=== PATIENT | male | born 1960 | race Caucasian/White ===

== ENCOUNTER 2020-02-13 15:44 | Outpatient (CLI) | payer MEDICARE, MEDICAID, SELFPAY ==
--- NOTE | 2020-02-13 16:30 | USCV_ITS ---
Brian Leblanc Age: 59 Gender: M : 1960 Exam Date: 02/13/2020 15:59 Ordering Phys: Christine Aldrich MD ([email or web address]) Technologist: Amelia Wilson Exam Location: [facility] [place] Indication: TIA BP: 144 / 75 HR: 99 Rhythm: Sinus Technical Quality: Adequate MEASUREMENTS (Male / Female) Normal Values 2D ECHO LV Diastolic Diameter PLAX 3.3 cm 4.2 - 5.9 / 3.9 - 5.3 cm LV Systolic Diameter PLAX 2.0 cm LV Chamber Size 2.5 cm IVS Diastolic Thickness 1.1 cm 0.6 - 1.0 / 0.6 - 0.9 cm IVS Systolic Thickness 0.9 cm LVPW Diastolic Thickness 1.6 cm 0.6 - 1.0 / 0.6 - 0.9 cm LVPW Systolic Thickness 1.8 cm RV Chamber Size 2.3 cm LVOT Diameter 2.0 cm LV Ejection Fraction 2D Teich 70.8 % LV Ejection Fraction MOD 2C 61.2 % LV Ejection Fraction 2C AL 62.1 % LA Diameter 2.9 cm LA Width 2.9 cm LA Height 2.7 cm RA Width 2.1 cm RA Height 2.8 cm Aorta at Sinotubular Diameter 3.5 cm M-MODE LV Diastolic Diameter MM 5.6 cm 4.2 - 5.9 / 3.9 - 5.3 cm LV Systolic Diameter MM 3.7 cm LV Ejection Fraction MM Teich 63.2 % IVS Diastolic Thickness MM 0.7 cm 0.6 - 1.0 / 0.6 - 0.9 cm IVS Systolic Thickness MM 0.8 cm LVPW Diastolic Thickness MM 0.7 cm 0.6 - 1.0 / 0.6 - 0.9 cm LVPW Systolic Thickness MM 0.9 cm Aortic Annulus Diameter 3.5 cm LA Ao Ratio MM 0.8 MV E Point Septal Separation 0.8 cm DOPPLER AV Peak Velocity 146.0 cm/s LVOT Peak Velocity 112.0 cm/s AV Area Cont Eq vti 3.0 cm squared AV Area Cont Eq pk 2.5 cm squared MV Area PHT 7.1 cm squared Mitral E to A Ratio 0.6 MV E' Velocity 11.0 cm/s Mitral E to MV E' Ratio 7.5 Mitral E to LV E' Lateral Ratio 7.3 Mitral E to LV E' Septal Ratio 7.8 TR Peak Velocity 271.0 cm/s TR Peak Gradient 29.4 mmHg TV Peak E Velocity 47.0 cm/s Right Atrial Pressure 3.0 mmHg Pulmonary Artery Systolic Pressu 32.4 mmHg PV Peak Velocity 62.0 cm/s RV Acceleration Time 0.2 s RV Ejection Time 0.4 s RV AcT/ET 0.4 FINDINGS Left Ventricle Normal left ventricular size, systolic function and wall thickness, with no regional wall motion abnormalities. Left ventricular ejection fraction is estimated at 60 %. Grade 1 diastolic dysfunction. Right Ventricle Normal right ventricular size and systolic function. Right ventricular systolic pressure 32.4 mmHg. Right Atrium Normal right atrial size. Right atrial pressure estimated at 3 mmHg. Left Atrium Normal left atrial size. Mitral Valve Thickened mitral valve with bowing of mild bilateral mitral valve leaflets. No significant mitral valve prolapse. No mitral valve stenosis. Mild mitral valve regurgitation. Aortic Valve Structurally normal trileaflet aortic valve. No aortic valve stenosis. Mild aortic valve regurgitation. Tricuspid Valve Structurally normal tricuspid valve. Pulmonic Valve Pulmonic valve not well visualized. Trace pulmonary valve regurgitation. Pericardium No pericardial effusion. Aorta Normal size aortic root and proximal ascending aorta. CONCLUSIONS 1. Normal left ventricular size, systolic function and wall thickness, with no regional wall motion abnormalities. Left ventricular ejection fraction is estimated at 60 %. Grade 1 diastolic dysfunction. 2. Normal right ventricular size and systolic function. 3. Right atrial pressure estimated at 3 mmHg. 4. Thickened mitral valve with bowing of mild bilateral mitral valve leaflets. Mild mitral valve regurgitation. 5. Pulmonary artery pressure estimated at 32 mmHg. 6. No prior similar studies to compare. Christine Aldrich MD (Electronically Signed) Final Date: 15 February 2020 15:14 S
== END 2020-02-13 15:45 | disposition home or self-care (01) ==
LOC: US 15:47
PROVIDERS: Family Provider Nurse Practitioner; PCP Nurse Practitioner; Visit Provider Internal Medicine Cardiovascular Disease
DX: G45.9 Transient cerebral ischemic attack, unspecified (principal); I34.0 Nonrheumatic mitral (valve) insufficiency
CPT/HCPCS: 93306

== ENCOUNTER → 2020-06-02 10:34 | Outpatient (BNVA) | payer MEDICARE, MEDICAID, SELFPAY | PROVIDERS: Family Provider Nurse Practitioner; PCP Nurse Practitioner; Visit Provider Nurse Practitioner | DX: E78.5 Hyperlipidemia, unspecified (principal); M54.32 Sciatica, left side; J43.9 Emphysema, unspecified; F41.9 Anxiety disorder, unspecified; K21.9 Gastro-esophageal reflux disease without esophagitis; G47.00 Insomnia, unspecified; E55.9 Vitamin D deficiency, unspecified | CPT/HCPCS: 80053; 80061 ==

== ENCOUNTER 2020-06-17 09:44 | Outpatient (CLI) | payer MEDICARE, MEDICAID, SELFPAY ==
--- NOTE | 2020-06-17 14:24 | PFTS_ITS ---
Date of Study:06/17/20 Date of Dictation: MECHANICS: Forced vital capacity (FVC) is normal. Forced expiratory volume in one second (FEV1) is reduced. FEV1/FVC is reduced. FLOW VOLUME LOOP: Reduced flow at all lung volumes with significant scooping. LUNG VOLUMES: Total lung capacity (TLC) is elevated. Residual volume (RV) is normal. DIFFUSING CAPACITY FOR CARBON MONOXIDE: Normal. INTERPRETATION: The pulmonary function tests are consistent with moderate obstruction. Lung volumes are consistent with hyperinflation. Gas exchange (DLCO) is normal. MTDD
== END 2020-06-17 09:45 | disposition home or self-care (01) ==
LOC: RT 09:45
PROVIDERS: Family Provider Nurse Practitioner; PCP Nurse Practitioner; Visit Provider Internal Medicine Pulmonary Disease
DX: J43.9 Emphysema, unspecified (principal)
CPT/HCPCS: 94010; 94726; 94729

== ENCOUNTER 2020-06-24 14:16 | Outpatient (CLI) | payer MEDICARE, MEDICAID, SELFPAY ==
--- NOTE | 2020-06-24 14:30 | CT_ITS ---
WS: [id number] CT CHEST TECHNIQUE: Noncontrast CT of the chest with coronal and sagittal reformatted images. CLINICAL INFORMATION: emphysema COMPARISON: CT chest January DLP: 689.[address] scans at [facility] use at least one of these dose optimization techniques: automat ed exposure control; mA and/or kV adjustment per patient size (includes targeted exams where dose is matched to clinical indication); or iterative reconstruction. FINDINGS: Mild chronic emphysematous changes. Stable noncalcified 4 mm nodule left lung apex. No mediastinal or hilar lymphadenopathy. Calcified subcarinal lymph nodes. Again seen are tree in bud opacities in the right upper lobe with bronchiectasis slightly progressed from previous. Additional tree-in-bud opacities in the right middle lobe. Left lung is well aerated. No focal pneumonia. Normal caliber thoracic aorta. Mild aortic calcification. Mild coronary calcifica tion. No axillary lymphadenopathy. Adrenal glands are normal. Small esophageal hiatal hernia. CT/CT chest con [id number] IMPRESSION: 1. Slightly progressed tree-in-bud opacities in the right upper lobe and right middle lobe similar to previous. 2. No focal pneumonia. 3. Stable 4 mm noncalcified nodule in the left lung apex. 4. No mediastinal or hilar lymphadenopathy. Calcified subcarinal lymph nodes.
== END 2020-06-24 14:17 | disposition home or self-care (01) ==
LOC: RADWPI 14:22
PROVIDERS: Family Provider Nurse Practitioner; PCP Nurse Practitioner; Visit Provider Internal Medicine Pulmonary Disease
DX: J43.9 Emphysema, unspecified (principal); R91.1 Solitary pulmonary nodule
CPT/HCPCS: 71250

== ENCOUNTER → 2020-11-27 10:13 | Outpatient (BNVA) | payer MEDICARE, MEDICAID, SELFPAY | PROVIDERS: Family Provider Nurse Practitioner; PCP Nurse Practitioner; Visit Provider Nurse Practitioner | DX: D64.9 Anemia, unspecified (principal); E78.5 Hyperlipidemia, unspecified; E55.9 Vitamin D deficiency, unspecified; F41.9 Anxiety disorder, unspecified; J43.9 Emphysema, unspecified; J30.9 Allergic rhinitis, unspecified; M54.32 Sciatica, left side; K21.9 Gastro-esophageal reflux disease without esophagitis; G47.00 Insomnia, unspecified | CPT/HCPCS: 80053; 80061; 82306; 84443; 85025 ==

== ENCOUNTER → 2021-03-12 09:17 | Outpatient (BNVA) | payer MEDICARE, MEDICAID, SELFPAY | PROVIDERS: Family Provider Nurse Practitioner; PCP Nurse Practitioner; Referring Provider Dermatology; Visit Provider Orthopaedic Surgery | DX: M54.5 Low back pain (principal); M54.9 Dorsalgia, unspecified | CPT/HCPCS: 72110 ==

== ENCOUNTER 2021-03-30 12:23 | Outpatient (CLI) | payer MEDICARE, MEDICAID, SELFPAY ==
--- NOTE | 2021-03-30 13:00 | MR_ITS ---
WS: [id number] MRI LUMBAR SPINE NONCONTRAST HISTORY: M48.061 - Spinal stenosis, lumbar region without neurogenic claudication COMPARISON: 05/16/2007 TECHNIQUE: Sagittal and axial multisequence imaging is submitted. Prior anterior cervical fusion at C4-5. Moderate increase in thoracic kyphosis. Mild LEFT curvature lumbar spine. No marrow edema or fracture. Mild disc desiccation at L3-4 and L4-5 . Conus terminates normally at L1. L1-L2: Normal. L2-L3: Mild asymmetric disc bulging. LEFT foraminal disc protrusion and annular fissure. Mild bilater al foraminal narrowing, slightly greater on the LEFT. L3-L4: Mild annular disc bulging with osteophytic ridging and facet joint arthritis. Mild ligamentum flavum hypertrophy. Mild to moderate narrowing of the lateral recesses and foramina. Greater on the L EFT. L4-L5: Mild diffuse annular disc bulging with ligamentum flavum hypertrophy. Small disc protrusion an d annular fissure in the LEFT foramen. Disc slightly contacts the undersurface of the L4 nerve root. There is also encroachment upon the L5 nerve roots bilaterally but greatest on the LEFT. Mild central stenosis. L5-S1: Very mild annular disc bulging. Mild bilateral foraminal narrowing. Visualized retroperitoneum is negative. MR/MR lumbar spine wo con* [id number] IMPRESSION: 1. Mild degenerative levoscoliosis similar to the prior study. 2. Mild progression of degenerative disc disease and foraminal narrowing since the prior study from 2006. 3. Small LEFT foraminal disc protrusion and annular fissures at L2-3 and L4-5 causing mild contact upon the adjacent L2 and L4 nerve roots, respectively. 4. Bilateral mild to moderate narrowing of the lateral recesses and foramina a t L3-4. 5. Mild central stenosis at L4-5 with mild encroachment upon the subarticular recesses bilaterally, LEFT greater than RIGHT.
== END 2021-03-30 12:24 | disposition home or self-care (01) ==
LOC: RADSHAW 12:26
PROVIDERS: PCP Nurse Practitioner; Visit Provider Orthopaedic Surgery
DX: M48.061 Spinal stenosis, lumbar region without neurogenic claudication (principal); M41.86 Other forms of scoliosis, lumbar region; M51.26 Other intervertebral disc displacement, lumbar region
CPT/HCPCS: 72148

== ENCOUNTER → 2021-05-15 09:40 | Outpatient (BNVA) | payer MEDICARE, MEDICAID, SELFPAY | PROVIDERS: PCP Nurse Practitioner; Visit Provider Orthopaedic Surgery | DX: Z20.822 Contact with and (suspected) exposure to COVID-19 (principal) | CPT/HCPCS: 87635 ==

== ENCOUNTER 2021-05-20 06:00 | Day surgery (SDC) | payer MEDICARE, MEDICAID, SELFPAY ==
--- NOTE | 2021-05-18 10:02 | ECG_ITS ---
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 Measurements Intervals Alexander Rate: 80 P: 70 AZ: 159 QRS: 53 QRSD: 85 T: 56 QT: 352 QTc: 408 Interpretive Statements SINUS RHYTHM Compared to ECG 03/31/2018 09:44:54 Sinus tachycardia no longer present Myocardial infarct finding no longer present Electronically Signed On 05-21-2021 7:24:04 CDT by Christine Aldrich M.D. [id number]
[2021-05-18 10:07] VITALS: BMI 23.6
[2021-05-18 10:33] LABS: Basophils # 0.1 10^3/uL (0.0-0.1); Basophils % 1.2 %; Eosinophils # 0.4 10^3/uL (0.0-0.8); Eosinophils % 6.9 %; Hematocrit 37.6 % (42.0-52.0); Hemoglobin 11.9 g/dL (11.7-16.6); Lymphocytes # 1.8 10^3/uL (0.8-4.8); Lymphocytes % 30.9 %; Mean Corpuscular HGB Conc 31.6 g/dL (30.0-36.0); Mean Corpuscular Hemoglobin 30.2 pg (28.0-34.0); Mean Corpuscular Volume 95.4 fL (80-94); Monocytes # 0.7 10^3/uL (0.2-0.9); Monocytes % 11.6 %; Neutrophils # 2.78 10^3/uL (1.8-7.7); Nucleated Red Blood Cells % 0 %; Platelet Count 206 10^3/cmm (130-400); Red Blood Count 3.94 10^6/uL (4.1-5.3); Red Cell Distribution Width 14.3 % (12.1-15.1); White Blood Count 5.7 10^3/uL (4.0-10.0)
--- NOTE | 2021-05-18 14:43 | P.ANESASSM_ITS ---
Pre-Anesthetic Assessment Pre-Anesthetic Assessment: Height/Weight: Height 1.75 m Weight 72.575 kg Proposed Procedure: Operation Date: 05/20/21 13:35 Proposed Procedures p Lumbar Spine Decompression 63692 M48.061(Not Applicable) - Perry March, DO Was Beta Bandar taken within 24 hours: N/A Was Clonidine taken within 24 hours: N/A Social: Social History: Tobacco and No alcohol Exam: Pre-Anes Outpt Exam: alert, oriented x 3 and regular rate & rhythm Airway: Submandibular: WNL Cervical ROM: WNL MP: 2 Dentition: False Pulmonary: Pulmonary: COPD Comments: Home O2 3L, recent pneumonia CV/HEM: CV/HEM: Anemia GI: GI: GERD Musc/skel: Musc/skel: Lower Back Pain Comments: Chronic pain/opioid Neuropsych: Neuropsych: Anxiety and Depression Anesthetic Plan: ASA status: 3 Anesthesia: General Risk of > 500 ml blood loss (7ml/kg in children): No PFSH Anesthesia PFSH: Medical History Anemia Anxiety CKD (chronic kidney disease) Dyslipidemia Environmental and seasonal allergies GERD (gastroesophageal reflux disease) Insomnia, unspecified Personal history of nicotine dependence Pulmonary emphysema Sciatica of left side Vitamin D deficiency Surgical History History of discectomy History of spinal fusion Family History Other Adult hypothyroidism Hypertension Social History Smoking and tobacco status: current some day smoker cigarettes Years cigarettes smoked: 35 [ Other cigarette details: 1 or 2 cigs weekly ] Quit status (tobacco): considering quitting Second hand smoke exposure: Yes Smoking risk assessment/counseling performed?: Yes Alcohol intake: never Desire information about alcohol rehabilitation?: No Counseling given: No Desire information about substance/drug rehabilitation?: No Counseling given: No Adopted: No Caregiver/support person: No Lives independently: Yes Household members: spouse Marital status: service: No Current occupational status: disabled Pets and animals: Yes History of recent travel: No Current gender identity: Male Data Anesthesia CBC & Chem 7: 05/18/21 10:15 Other Labs: Laboratory Results - last 48 hr 05/18/21 10:15 WBC 5.7 RBC 3.94 L Hgb 11.9 Hct 37.6 L MCV 95.4 H MCH 30.2 MCHC 31.6 RDW 14.3 Plt Count 206 MPV 11.0 H Neut % (Auto) 49.0 Lymph % (Auto) 30.9 [place] % (Auto) 11.6 Eos % (Auto) 6.9 Baso % (Auto) 1.2 Neut # (Auto) 2.78 Lymph # (Auto) 1.8 [place] # (Auto) 0.7 Eos # (Auto) 0.4 Baso # (Auto) 0.1 Nucleated RBC % (auto) 0 Nucleated RBCs # 0.0 Cardiac Studies: No Data to Display
[2021-05-20] VITALS (10 sets, daily range): BP systolic 115–148; BP diastolic 73–88; PULSE 87–96; RESP 16–21; TEMP 36.5–36.9; O2SAT 96–100
--- NOTE | 2021-05-20 | SCC_ITS ---
Procedure Done: Left L4/5 laminectomy with partial facetectomy 12.6 seconds of fluoroscopic guidance, for a cumulative dose of 2.46 mGy, was provided to Dr. March by the radiology department. C-arm images of the lumbar spine were saved for the patient's permanent record. ANGELA
--- NOTE | 2021-05-20 | XR_ITS ---
WS: [id number] Lumbar spine, C-arm fluoroscopy of the lumbar spine, 05/20/2021 Clinical Data: decompression Comparison: Lumbar spine, 03/12/2021. Findings: Dr. March performed decompression of the L4-L5 level. XR/XR lumbar spine 2-3V* [id number] Impression: Decompression of L4-L5 level.
--- NOTE | 2021-05-20 06:48 | P.HP_ITS ---
Providers/Chief Complaint Primary Care Provider: ROBRET BanuelosC Chief Complaint: lumbar decompression History of Present Illness Brian Leblanc is a 60 year old malelow back pain. He states he has had low back pain since 1985. He has been seeing pain management in [facility] for 20 years and is being prescribed morphine, celebrex, gabapentin and tramadol. He states he has had several injections, which do not provide any relief. He states the pain radiates down his left leg down to his knee. He has tried formal physical therapy in the past. He is allergic to steroids. Associated symptoms: Denies abdominal pain, chills, fever(s), nausea or vomiting Review of Systems Narrative: General ROS: negative for weight changes, fever ENT ROS: negative for nasal congestion, drainage or bleeding, sore throat, dysphagia or ear pain Eyes: PERRL Hematological and Lymphatic ROS: negative for swollen glands or abnormal bleeding Endocrine ROS: negative for polyuria/polydpsia or new changes in weight Respiratory ROS: negative for cough, shortness of breath, or wheezing Cardiovascular ROS: negative for chest pain or dyspnea on exertion Gastrointestinal ROS: negative for reflux, abdominal pain, change in bowel habits, or black or bloody stools Musculoskeletal ROS: negative for back pain, neck pain, or joint pain or swelling except for current problem Neurological ROS: negative for TIA or stoke symptoms Skin: no rashes Medications/Allergies Home Medications Medication Instructions Recorded Confirmed Last Taken Type albuterol sulfate 2.5 mg INHALATION Q6H 01/22/20 05/18/21 05/19/21 History celecoxib 200 mg capsule 200 mg PO DAILY 01/22/20 05/18/21 05/20/21 History morphine 30 mg immediate release 15 mg PO BID PRN 01/22/20 05/18/21 05/20/21 Hi story tablet gabapentin 600 mg tablet 600 mg PO TID #90 tab 06/02/20 05/18/21 05/20/21 Rx cyclobenzaprine 10 mg tablet 10 mg PO TID 08/11/20 05/18/21 05/20/21 History tramadol 50 mg tablet 50 mg PO TID tab 08/11/20 05/18/21 05/20/21 History therapeutic multivitamin 1 tab PO QAM #30 tab 11/27/20 05/18/21 05/20/21 Rx atorvastatin 20 mg tablet See Rx Instructions .ROUTE 01/23/21 05/18/21 05/19/21 Rx .COMPLEX #90 tab budesonide 1 mg/2 mL suspension 1 mg INHALATION BID 5 Days #20 ml 02/16/21 05/18/21 05/19/21 Rx for nebulization buspirone 15 mg tablet 15 mg PO BID #60 tab 02/24/21 05/18/21 05/19/21 Rx duloxetine 20 mg capsule,delayed 20 mg PO BID #60 cap 02/24/21 05/18/21 05/19/21 Rx release levocetirizine 5 mg tablet 5 mg PO DAILY #30 tab 02/24/21 05/18/21 05/19/21 Rx magnesium oxide 400 mg PO BID #60 tab 02/24/21 05/18/21 05/20/21 Rx omeprazole 20 mg capsule,delayed 20 mg PO DAILY #30 cap 02/24/21 05/18/21 05/20/21 Rx release umeclidinium 62.5 mcg-vilanterol 1 inh INHALATION DAILY #60 each 02/24/21 05/18/21 05/20/21 Rx 25 mcg/actuation powdr for inhalation zolpidem 10 mg tablet 10 mg PO .at bedtime #30 tab 02/24/21 05/18/21 05/19/21 Rx prednisone 20 mg tablet 20 mg PO DAILY #7 tab 03/19/21 04/16/21 Unknown Rx Allergies Allergy/AdvReac Type Severity Reaction Status Date / Time Corticosteroids Allergy ADR-Agitate Verified 04/16/21 10:23 (Glucocorticoids) d PFSH Acute PFSH: Medical History (Updated 05/20/21 @ 06:50 by Perry March DO) Anemia Anxiety CKD (chronic kidney disease) Dyslipidemia Environmental and seasonal allergies GERD (gastroesophageal reflux disease) Insomnia, unspecified Personal history of nicotine dependence Pulmonary emphysema Sciatica of left side Vitamin D deficiency Surgical History History of discectomy History of spinal fusion Family History Other Adult hypothyroidism Hypertension Social History Smoking and tobacco status: current some day smoker cigarettes Years cigarettes smoked: 35 [ Other cigarette details: 1 or 2 cigs weekly ] Quit status (tobacco): considering quitting Second hand smoke exposure: Yes Smoking risk assessment/counseling performed?: Yes Alcohol intake: never Desire information about alcohol rehabilitation?: No Counseling given: No Desire information about substance/drug rehabilitation?: No Counseling given: No Adopted: No Caregiver/support person: No Lives independently: Yes Household members: spouse Marital status: service: No Current occupational status: disabled Pets and animals: Yes History of recent travel: No Current gender identity: Male Vitals/I&O/Wt Last Vital Signs Temp 98.4 F 05/20/21 06:12 Pulse 95 05/20/21 06:12 Resp 18 05/20/21 06:12 BP 148/81 05/20/21 06:12 Pulse Ox 99 05/20/21 06:12 Weight last 48 hrs Weight 160 lb Physical Exam Narrative: EXAM NARRATIVE: CONSTITUTIONAL: The patient is a normal appearing [] in no apparent distress. GENERAL: Patient in no acute distress. CARDIAC: Regular rate and rhythm. CHEST: Normal inspiratory effort, normal respiratory rate. ABDOMEN: Soft and nontender. SKIN: Clear, warm and intact. NEURO?PSYCH: The patient is alert and oriented to person, place and time. Sensorv /SILT Motor StrengthShoulder abduction C5 5/5Wrist extension C6 5/5Elbow extension C7 5/5Hand Floor Trader C8 5/5Finger abduction T15/5 Radial/ Ulnar/ Median n intact LowerSensory (SILT)Motor StrengthHin flexion L2/3Ant/inner thigh 5/5Hip adduction L2/3 5/5Knee extension L4 Lat thigh, 5/5Toe dorsiflexion L5 5/5Ankle dorsiflexion L5/ G15Ybigduk flexion S1 5/5 DTRBleeps 2+Triceps 2+Brachioradialis 2+Patellar 2+Achilles 2+ MUSCULOSKELETAL: [] UPPEREXTREMITIES: The patient had full active ROM in fingers, wrist, elbow, and shoulder. The patient demonstrated ability to fully flex/extend /abduct/adduct fingers, make ok sign, cross 2nd/3rd digits, extend 1st digit fully.. Radial pulse 2+, CR<2 seconds. LOWER EXTREMITIES: Pt has full, active ROM of toes, ankle, knee, and hip. Dorsalis pedis/posterior tibialis pulses 2+, CR<2 seconds. SPINE: Skin warm, dry, intact. 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
--- NOTE | 2021-05-20 06:50 | W.PM.OPSUD ---
Surgery/Procedure H&P Update DATE OF PROCEDURE: May 20, 2021 DATE H&P PERFORMED: 05/20/21 PREOP DIAGNOSIS: lumbar stenosis PLANNED PROCEDURE: Operation Date: 05/20/21 07:00 Proposed Procedures p Lumbar Spine Decompression 31722 M48.061(Not Applicable) - Perry March DO
[2021-05-20] MEDS: sodium chloride 0.9% 1,000 ML 30 ML IV (07:15)
--- NOTE | 2021-05-20 07:19 | P.ANESUD_ITS ---
Pre-Anesthetic Update Pre-Anesthetic Assessment: Date of Surgery/Procedure: 05/20/21 Preop Leesa gnosis: lumbar stenosis Proposed Procedure: Operation Date: 05/20/21 07:00 Proposed Procedures p Lumbar Spine Decompression 16946 M48.061(Not Applicable) - Perry March, DO Any changes to Pre-Anesthetic Assessment?: No Last Intake: Intake Last Liquid Date 05/19/21 Last Liquid Time 22:00 Last Solid Date 05/19/21 Last Solid Time 17:00 Labs Last 48hrs: Laboratory Results - last 48 hr 05/18/21 10:15 WBC 5.7 RBC 3.94 L Hgb 11.9 Hct 37.6 L MCV 95.4 H MCH 30.2 MCHC 31.6 RDW 14.3 Plt Count 206 MPV 11.0 H Neut % (Auto) 49.0 Lymph % (Auto) 30.9 [place] % (Auto) 11.6 Eos % (Auto) 6.9 Baso % (Auto) 1.2 Neut # (Auto) 2.78 Lymph # (Auto) 1.8 [place] # (Auto) 0.7 Eos # (Auto) 0.4 Baso # (Auto) 0.1 Nucleated RBC % (a uto) 0 Nucleated RBCs # 0.0 Vitals: Temperature 98.4 F 05/20/21 06:12 Temperature Source Temporal Artery S can 05/20/21 06:12 Pulse Rate 95 05/20/21 06:12 Respiratory Rate 18 05/20/21 06:12 Blood Pressure 148/81 05/20/21 06:12 Blood Pressure Christin n 103 05/20/21 06:12 Pulse Oximetry 99 05/20/21 06:12 Oxygen Delivery Me thod 05/20/21 06:12 Oxygen Flow Rate 3 05/20/21 06:12 Exam: Pre-Anes Outpt Exam: alert, oriented x 3, clear to auscultation bilaterally and regular rate & rhythm Cardiac Studies: No Data to Display
--- NOTE | 2021-05-20 08:29 | P.OP_ITS ---
Operative Report Date of procedure: May 20, 2021 Pre-op Diagnosis: lumbar stenosis Post-op diagnosis: same Procedure Done: Left L4/5 laminectomy with partial facetectomy Surgeon: Perry March Anesthesia: General Estimated blood loss (mL): 5 Condition: stable Disposition: PACU Procedure: Left L4/5 laminectomy with partial facetectomy Patient is brought to the operative suite. After undergoing anesthesia they are placed in the supine position. All areas of impingement are well padded. Patient is then prepped and draped in the normal sterile fashion. A skin incision is made over the L4/5 level. This is confirmed under c-arm guidance. A series of dilators are passed and the tubular retractor is docked on the L4 lamina. A bovie is used to clear the soft tissue off the lamina and the L 4/5 facet joint. A high speed louis is then used to perform the laminectom y and take down the medial aspect of the L 4/5 facet joint. A kerrison rongeure was then used to take down the remaining lamina and smooth the edge of the laminectomy up to the point where the ligamentum flavum attaches. Attention was then brought to the medial aspect of the facet joint. The remaining medial aspect of the superior and inferior aspect of the facet joint were taken down with the kerrison from the pedicle of L4 to L 5. The facet joint had significant hypertrophy. Attention was then brought to the Ligamentum Flavum. The ligament was taken down from the lamina of L4 to L5 and out medially to the remaining facet joint. The ligament was thick. The dura was then exposed. The dura was in good repair. The L4 nerve was then traced with a curette out the L4/5 foramen and found to be adequately decompressed. The L5 nerve was traced with a curette around the L5 pedicle. The lateral recess was opened with a kerrison helping to further decompress the L5 nerve. Wound is then irrigated copiously with saline and surgiflo is used to stop any bleeding. The tubular retractor is removed and the wound is closed with vicryl and monocryl suture. Glue is then used to protect the wound. A sterile dressing is then placed. Patient was then placed in the supine position and transferred to the PACU in stable condition.
[2021-05-20] MEDS: HYDROcodone-acetaminophen 5-325 mg Tablet 1 TAB PO (09:16)
--- NOTE | 2021-05-20 14:29 | ANE.PACU2 ---
Inpatient post-anesthesia follow up: Airway intact: Yes Vital signs: Temperature 97.9 F Pulse Rate 89 Respiratory Rate 18 Blood Pressure 118/78 Pulse Oximetry 96 Oxygen Delivery Me thod Room Air Oxygen Flow Rate 6 Fraction of Inspir ed Oxygen Hydration adequate: Yes Nausea and vomiting: No Pain level: 2 Mental status: Baseline
== END 2021-05-20 09:35 | disposition home or self-care (01) ==
PROVIDERS: Anesthesiology; PCP Nurse Practitioner; Visit Provider Orthopaedic Surgery
PROC: (CPT 63005; principal; 2021-05-20 07:00)
DX: M48.062 Spinal stenosis, lumbar region with neurogenic claudication (principal); Z99.81 Dependence on supplemental oxygen; K21.9 Gastro-esophageal reflux disease without esophagitis; E78.5 Hyperlipidemia, unspecified; J43.9 Emphysema, unspecified; N18.9 Chronic kidney disease, unspecified; E03.9 Hypothyroidism, unspecified; I10 Essential (primary) hypertension; F17.210 Nicotine dependence, cigarettes, uncomplicated
CPT/HCPCS: 63047; 36415; 72100; 76000; 85025; 93005; J0330; J0690; J2250; J2405; J2704; J2930; J3010; J3490; J7030

== ENCOUNTER → 2021-06-10 09:09 | Outpatient (BNVA) | payer MEDICARE, MEDICAID, SELFPAY | PROVIDERS: PCP Nurse Practitioner; Visit Provider Nurse Practitioner | DX: E78.5 Hyperlipidemia, unspecified (principal); E55.9 Vitamin D deficiency, unspecified | CPT/HCPCS: 80053; 80061 ==

== ENCOUNTER → 2021-09-24 12:03 | Outpatient (BNVA) | payer MEDICARE, MEDICAID, SELFPAY | PROVIDERS: PCP Nurse Practitioner; Visit Provider Nurse Practitioner | DX: J96.11 Chronic respiratory failure with hypoxia (principal); J96.12 Chronic respiratory failure with hypercapnia; Z20.822 Contact with and (suspected) exposure to COVID-19 | CPT/HCPCS: 80053; 85025; 87635 ==

== ENCOUNTER → 2021-10-13 12:05 | Outpatient (BNVA) | payer MEDICARE, MEDICAID, SELFPAY | PROVIDERS: PCP Nurse Practitioner; Visit Provider Nurse Practitioner | DX: J43.2 Centrilobular emphysema (principal) | CPT/HCPCS: 85025 ==

== ENCOUNTER 2022-01-04 08:11 | Outpatient (CLI) | payer MEDICARE, MEDICAID, SELFPAY ==
--- NOTE | 2022-01-04 08:21 | CT_ITS ---
WS: [id number] LDCT LUNG CANCER SCREENING HISTORY: lung screening TECHNIQUE: Axial imaging performed from the apices to 1 cm below the costophrenic angles. Coronal and sagittal reformats are submitted with axial MIP series. All CT scans at [facility] use at least one of these dose optimization techniques: automated exposure control; mA and/or kV adjustment per patient size (includes targeted exams where dose is matched to clinical indication); or iterativ e reconstruction. DLP: 56.56 mGy.cm DIvol: Mean CTDIvol: 1.58 (mGy) COMPARISON: Chest CT 06/24/2020 Diagnostic quality: Satisfactory Lung Nodules: Long-term stability 3 mm nodule apex LEFT lung. No new pulmonary nodule or mass. Lungs: Lungs are hyperinflated. Linear to the prior study. There is moderate bronchial wall thickenin g beginning centrally and extending into the RIGHT upper, middle and lower lobes. Bronchial wall thic kening is very slightly nodular but similar to prior studies. There is also long-term stability very mild tree-in-bud airspace disease throughout the RIGHT lung. Similar findings but to a much lesser ex tent centrally on the LEFT. Mild changes of bronchiectasis in the RIGHT upper, middle and lower lobes . Heart: Normal size heart. Other findings: Very heavily densely calcified subcarinal lymph nodes. Low RIGHT paratracheal lymph n ode at 7 mm. Mild ectasia thoracic aorta. CT/CT lung screening [id number] IMPRESSION: LUNG-RADS: 2-Benign Appearance or Behavior FOLLOW UP: 12 Month: Continue annual screening with LDCT OTHER FINDINGS (S MODIFIER): None.
== END 2022-01-04 08:12 | disposition home or self-care (01) ==
LOC: RAD 08:19
PROVIDERS: PCP Nurse Practitioner; Visit Provider Internal Medicine Pulmonary Disease
DX: Z12.2 Encounter for screening for malignant neoplasm of respiratory organs (principal); F17.210 Nicotine dependence, cigarettes, uncomplicated
CPT/HCPCS: 71271

== ENCOUNTER → 2022-02-09 11:18 | Outpatient (BNVA) | payer MEDICARE, MEDICAID, SELFPAY | PROVIDERS: PCP Nurse Practitioner; Visit Provider Nurse Practitioner | DX: E55.9 Vitamin D deficiency, unspecified (principal); M48.062 Spinal stenosis, lumbar region with neurogenic claudication | CPT/HCPCS: 80053; 82306; 85025; 85651; 86140 ==

== ENCOUNTER → 2022-02-11 10:09 | Outpatient (BNVA) | payer MEDICARE, MEDICAID, SELFPAY | PROVIDERS: PCP Nurse Practitioner; Visit Provider Internal Medicine Pulmonary Disease | DX: J06.9 Acute upper respiratory infection, unspecified (principal); J43.2 Centrilobular emphysema; R07.9 Chest pain, unspecified; J43.9 Emphysema, unspecified; R91.1 Solitary pulmonary nodule; Z91.89 Other specified personal risk factors, not elsewhere classified; E78.5 Hyperlipidemia, unspecified; F41.9 Anxiety disorder, unspecified; K21.9 Gastro-esophageal reflux disease without esophagitis; Z99.81 Dependence on supplemental oxygen | CPT/HCPCS: 99214 ==

== ENCOUNTER → 2022-03-03 08:40 | Outpatient (BNVA) | payer MEDICARE, MEDICAID, SELFPAY | PROVIDERS: PCP Nurse Practitioner; Visit Provider Anesthesiology Pain Medicine | DX: M51.16 Intervertebral disc disorders with radiculopathy, lumbar region (principal); M41.9 Scoliosis, unspecified; M79.604 Pain in right leg; M79.605 Pain in left leg; F17.210 Nicotine dependence, cigarettes, uncomplicated; Z79.891 Long term (current) use of opiate analgesic | CPT/HCPCS: 99203 ==

== ENCOUNTER → 2022-04-06 10:04 | Outpatient (BNVA) | payer MEDICARE, MEDICAID, SELFPAY | PROVIDERS: PCP Nurse Practitioner; Visit Provider Nurse Practitioner | DX: E55.9 Vitamin D deficiency, unspecified (principal); E78.5 Hyperlipidemia, unspecified; F41.9 Anxiety disorder, unspecified; K21.9 Gastro-esophageal reflux disease without esophagitis; F51.01 Primary insomnia; J43.2 Centrilobular emphysema | CPT/HCPCS: 82306 ==

== ENCOUNTER → 2022-04-13 13:10 | Outpatient (BNVA) | payer MEDICARE, MEDICAID, SELFPAY | PROVIDERS: PCP Nurse Practitioner; Visit Provider Orthopaedic Surgery | DX: M48.062 Spinal stenosis, lumbar region with neurogenic claudication (principal) | CPT/HCPCS: 72110; 99213 ==

== ENCOUNTER → 2022-05-04 09:50 | Outpatient (BNVA) | payer MEDICARE, MEDICAID, SELFPAY | PROVIDERS: PCP Nurse Practitioner; Visit Provider Orthopaedic Surgery | DX: Z53.9 Procedure and treatment not carried out, unspecified reason (principal) ==

== ENCOUNTER 2022-06-01 15:11 | Outpatient (CLI) | payer MEDICARE, MEDICAID, SELFPAY ==
--- NOTE | 2022-06-01 15:15 | MR_ITS ---
WS: [email or web address] MRI LUMBAR SPINE NONCONTRAST TECHNIQUE: Sagittal T1, T2 and STIR imaging. Axial T1 and T2 imaging. CLINICAL INFORMATION: M51.16 - Intervertebral disc disorders with radiculopathy... COMPARISON: MRI March 30, 2021 FINDINGS: Mild lumbar curve. No acute compression. No high-grade central canal stenosis. L1-L2: Normal. L2-L3: Slight retrolisthesis. Mild annular bulging. Slight impingement traversing L3 nerve roots bila terally. Small LEFT foraminal protrusion with slight impingement on exiting LEFT L2 nerve root. Mild facet arthropathy. L3-L4: Slight retrolisthesis. Mild annular bulging. Slight impingement traversing L4 nerve roots bila terally. Small LEFT foraminal protrusion with mild LEFT foraminal narrowing. Impingement on the exiti ng LEFT L3 nerve root. Small annular fissure. L4-L5: Prior LEFT hemilaminectomy. Mild annular bulging with impingement traversing L4 nerve roots bi laterally has improved. Mild facet arthropathy. Mild LEFT foraminal narrowing is improved. L5-S1: Mild annular bulging. Slight impingement traversing LEFT S1 nerve root. Mild facet arthropathy . Mild bilateral foraminal narrowing. Adrenal glands are normal. LEFT renal cyst. Prior postoperative changes ACDF C4-C6 cervical spine. Mi ld central canal stenosis C3-C4. MR/MR lumbar spine wo con* [id number] IMPRESSION: 1. Mild lumbar curve. No acute compression. No high-grade central canal stenos is. 2. LEFT foraminal protrusion L3-L4 impinges the exiting LEFT L3 nerve root. Re commend correlation for LEFT L3 nerve root symptoms. Small annular fissure. 3. LEFT hemilaminectomy L4-L5 with LEFT foraminotomy. Narrowing of the L4-L5 s ubarticular recess and LEFT foraminal narrowing is improved. 4. Stable small LEFT L2-L3 foraminal protrusion with slight impingement on the exiting LEFT L2 nerve root.
== END 2022-06-01 15:12 | disposition home or self-care (01) ==
LOC: RAD 15:12
PROVIDERS: PCP Nurse Practitioner; Visit Provider Orthopaedic Surgery
DX: M51.16 Intervertebral disc disorders with radiculopathy, lumbar region (principal); M48.062 Spinal stenosis, lumbar region with neurogenic claudication
CPT/HCPCS: 72148

== ENCOUNTER → 2022-06-08 14:31 | Outpatient (BNVA) | payer MEDICARE, MEDICAID, SELFPAY | PROVIDERS: PCP Nurse Practitioner; Visit Provider Orthopaedic Surgery | DX: M48.062 Spinal stenosis, lumbar region with neurogenic claudication (principal) | CPT/HCPCS: 99213; 99214 ==

== ENCOUNTER → 2022-06-25 09:54 | Outpatient (BNVA) | payer MEDICARE, MEDICAID, SELFPAY | PROVIDERS: PCP Nurse Practitioner; Visit Provider Internal Medicine Pulmonary Disease | DX: R06.02 Shortness of breath (principal); J43.2 Centrilobular emphysema; R91.1 Solitary pulmonary nodule; Z91.89 Other specified personal risk factors, not elsewhere classified; F17.210 Nicotine dependence, cigarettes, uncomplicated; Z99.81 Dependence on supplemental oxygen | CPT/HCPCS: 99214 ==

== ENCOUNTER → 2022-07-30 11:30 | Outpatient (BNVA) | payer MEDICARE, SELFPAY | PROVIDERS: PCP Nurse Practitioner; Visit Provider Nurse Practitioner | DX: G47.00 Insomnia, unspecified (principal); F41.9 Anxiety disorder, unspecified; J30.89 Other allergic rhinitis; E78.5 Hyperlipidemia, unspecified; K21.9 Gastro-esophageal reflux disease without esophagitis; J43.2 Centrilobular emphysema; E55.9 Vitamin D deficiency, unspecified | CPT/HCPCS: 80053; 82306; 84443 ==

== ENCOUNTER 2022-08-03 07:00 | Outpatient (CLI) | payer MEDICARE, MEDICAID, SELFPAY ==
--- NOTE | 2022-08-03 | MR_ITS ---
WS: [id number] MRI CERVICAL SPINE NONCONTRAST TECHNIQUE: Sagittal T1, T2 and STIR imaging. Axial T2, gradient, and fiesta imaging. CLINICAL INFORMATION: M54.2 - Cervicalgia COMPARISON: CT August 09, 2011 and MRI 2007 FINDINGS: Straightening of the normal cervical lordosis ACDF C4-C5 with interbody fusion C4-C5 and C5-C6. Sligh t retrolisthesis C3 on C4. Disc space narrowing worse at C3-C4 and C6-C7. C2-C3: Tiny central disc protrusion. Mild facet arthropathy. Slight effacement of ventral thecal sac. Slight contact of the cervical cord. Mild RIGHT and no significant LEFT foraminal narrowing. C3-C4: Disc osteophyte complex with endplate ridging. Moderate facet arthropathy. Moderate central ca nal stenosis. Moderate RIGHT and mild LEFT bony foraminal narrowing. Moderate facet arthropathy. C4-C5: ACDF. Moderate facet arthropathy. Spinal canal and foramen are patent. C5-C6: Postoperative changes interbody fusion. Moderate facet arthropathy worse in the RIGHT. Moderat e LEFT and mild RIGHT bony foraminal narrowing. Spinal canal is patent. C6-C7: Mild disc bulging and osteophytic ridging. Severe LEFT and moderate RIGHT bony foraminal narro wing. Osteophytic ridging. Moderate facet arthropathy. C7-T1: Mild LEFT and no significant RIGHT foraminal narrowing. Spinal canal is patent Visualized brain stem structures: Normal. Prevertebral soft tissues: Normal. MR/MR cervical spin wo con* [id number] IMPRESSION: 1. Postoperative changes ACDF C4-C5 with interbody fusion C4-C5 and C5-C6. 2. Moderate central canal stenosis C3-C4 due to slight retrolisthesis with dis c osteophyte complex and slight contact of the cervical cord. 3. Mild central canal stenosis C6-C7 due to disc osteophyte complex with osteo phytic ridging. 4. Severe LEFT C6-C7 bony foraminal narrowing. 5. Moderate bony foraminal narrowing RIGHT C3-C4, LEFT C5-C6, and RIGHT C6-C7.
== END 2022-08-03 07:01 | disposition home or self-care (01) ==
LOC: RAD 07:02
PROVIDERS: PCP Nurse Practitioner; Visit Provider Orthopaedic Surgery
DX: M48.02 Spinal stenosis, cervical region (principal); M54.2 Cervicalgia
CPT/HCPCS: 72141

== ENCOUNTER 2022-08-03 07:01 | Outpatient (CLI) | payer MEDICARE, MEDICAID, SELFPAY ==
--- NOTE | 2022-08-03 10:00 | FL_ITS ---
WS: [email or web address] FL barium swallow [id number] REASON FOR EXAM: DYSPHAGIA FLUOROSCOPY TIME: 2min [id number] # OF SPOT FILMS: 10 TECHNIQUE: Patient was examined in the upright and SAN, CZECH, and LPO positions. The swallowing of barium in the various positions was monitored with fluoroscopy and multiple spot films. FINDINGS: Cervical esophagus was normal. Intermittently there was loss of the primary peristaltic wave of the esophagus between the thoracic i nlet and the gastroesophageal junction. There would be retention of barium without dilatation. There were random of dense of tertiary contractions. The barium was cleared with a dry swallow. No reflux w as identified. No significant hiatal hernia and no distal esophageal stricture. FL/FL barium swallow [id number] IMPRESSION: Mild esophageal dysmotility without demonstration of significant retrograde mov ement of contrast in the esophagus.
== END 2022-08-03 07:02 | disposition home or self-care (01) ==
LOC: RAD 07:02
PROVIDERS: PCP Nurse Practitioner; Visit Provider Internal Medicine Pulmonary Disease
DX: R13.10 Dysphagia, unspecified (principal); Z91.89 Other specified personal risk factors, not elsewhere classified
CPT/HCPCS: 74220

== ENCOUNTER 2022-08-11 06:00 | Outpatient (RCR) | payer MEDICARE, MEDICAID, SELFPAY | END 2022-08-20 23:59 | disposition home or self-care (01) | LOC: AST 06:00 | PROVIDERS: PCP Nurse Practitioner; Visit Provider Internal Medicine Pulmonary Disease | DX: R13.10 Dysphagia, unspecified (principal) | CPT/HCPCS: 92610 ==

== ENCOUNTER → 2022-12-01 14:45 | Outpatient (BNVA) | payer MEDICARE, MEDICAID, SELFPAY | PROVIDERS: PCP Nurse Practitioner; Visit Provider Internal Medicine Pulmonary Disease | DX: R06.02 Shortness of breath (principal); J22 Unspecified acute lower respiratory infection; J43.2 Centrilobular emphysema; R91.1 Solitary pulmonary nodule; Z91.89 Other specified personal risk factors, not elsewhere classified; F17.210 Nicotine dependence, cigarettes, uncomplicated | CPT/HCPCS: 99214 ==

== ENCOUNTER → 2022-12-07 13:38 | Outpatient (BNVA) | payer MEDICARE, MEDICAID, SELFPAY | PROVIDERS: PCP Nurse Practitioner; Visit Provider Nurse Practitioner | DX: E78.5 Hyperlipidemia, unspecified (principal) | CPT/HCPCS: 80053; 80061; 84443 ==

== ENCOUNTER → 2023-01-20 09:47 | Outpatient (BNVA) | payer MEDICARE, MEDICAID, SELFPAY | PROVIDERS: PCP Nurse Practitioner; Visit Provider Physician Assistant | DX: M50.30 Other cervical disc degeneration, unspecified cervical region (principal); M47.22 Other spondylosis with radiculopathy, cervical region; Z98.1 Arthrodesis status | CPT/HCPCS: 72050; 99213 ==

== ENCOUNTER → 2023-01-21 10:03 | Outpatient (BNVA) | payer MEDICARE, MEDICAID, SELFPAY | PROVIDERS: PCP Nurse Practitioner; Visit Provider Nurse Practitioner | DX: N18.9 Chronic kidney disease, unspecified (principal); J43.2 Centrilobular emphysema | CPT/HCPCS: 80048; 81000 ==

== ENCOUNTER → 2023-02-09 09:23 | Outpatient (BNVA) | payer MEDICARE, MEDICAID, SELFPAY | PROVIDERS: PCP Nurse Practitioner; Visit Provider Nurse Practitioner Family | DX: R05.9 Cough, unspecified (principal); J44.1 Chronic obstructive pulmonary disease with (acute) exacerbation; J96.11 Chronic respiratory failure with hypoxia; J96.12 Chronic respiratory failure with hypercapnia | CPT/HCPCS: 87426 ==

== ENCOUNTER 2023-02-16 05:42 | Day surgery (SDC) | payer MEDICARE, MEDICAID, SELFPAY ==
[2023-02-15 09:58] VITALS: BMI 23.6
--- NOTE | 2023-02-15 10:35 | ANES.PREANE2 ---
Pre-Anesthetic Assessment Height/Weight: Height 1.73 m Weight 70.307 kg Preop Diagnosis: lumbar stenosis Operation Date: 02/16/23 07:00 Proposed Procedures p Anterior Cervical Discectomy & Fusion ACDF w/ Anterior Interbody Fusion w/ Cage w/ Instrumentation w/ Allograft: [id number],M47.22(Not Applicable) - Perry March, DO Familial anesthetic complications: none Was Beta Bandar taken within 24 hours: N/A Was Clonidine taken within 24 hours: N/A Social Tobacco and No alcohol Exam alert, oriented x 3 and regular rate & rhythm Airway Submandibular: within normal limits Cervical ROM: Other (Mild ROM limitation) Mallampati: Class II Dentition: false Pulmonary Chronic Obstructive Pulmonary Disease Home O2 3L CV/HEM Anemia, Coronary Artery Disease and Myocardial Infarction Chronic Renal Insufficiency GI Gastroesophageal Reflux Disease Metabolic Hyperlipidemia [facility] [place] Lower Back Pain and Osteoarthritis/DJD Neuropsych Anxiety, Cerebrovascular Accident and Depression Chronic pain/opioid Anesthetic Plan ASA status: 3 Anesthesia: General Medications/Allergies Home Medications Medication Instructions Recorded Confirmed Last Taken Type albuterol sulfate 2.5 mg/3 mL 2.5 mg inhalation Q6H 01/22/20 02/15/23 1 Day Ago History (0.083 %) solution for nebulization ~02/14/23 celecoxib 200 mg capsule (Celebrex) 200 mg PO DAILY 01/22/20 02/15/23 1 Day Ago History ~02/14/23 gabapentin 600 mg tablet 600 mg PO TID #90 tabs 06/02/20 02/15/23 1 Day Ago Rx ~02/14/23 cyclobenzaprine 10 mg tablet 10 mg PO TID 08/11/20 02/15/23 1 Day Ago History ~02/14/23 tramadol 50 mg tablet 50 mg PO TID 08/11/20 02/15/23 1 Day Ago History ~02/14/23 morphine 30 mg immediate release 30 mg PO BID PRN Pain, Severe 01/04/22 02/15/23 1 Day Ago History tablet ~02/14/23 suvorexant 20 mg tablet (Belsomra) 20 mg PO .bedtime for sleep #30 07/30/22 02/15/23 1 Day Ago Rx tabs ~02/14/23 benzonatate 100 mg capsule 100 mg PO BID PRN cough #30 caps 01/11/23 03/28/23 1 Day Ago Rx ~02/14/23 atorvastatin 20 mg tablet See Rx Instructions .Route 12/10/22 02/15/23 1 Day Ago Rx .COMPLEX #90 tabs ~02/14/23 guaifenesin 1,200 mg tablet, 1,200 mg PO BID #60 tabs 01/21/23 02/15/23 Unknown Rx extended release 12 hr (Mucinex) cholecalciferol (vitamin D3) 125 125 mcg PO DAILY #30 caps 01/25/23 02/15/23 1 Day Ago Rx mcg (5,000 unit) capsule ~02/14/23 levocetirizine 5 mg tablet 5 mg PO DAILY #30 tabs 01/25/23 02/15/23 1 Day Ago Rx (Allergy Relief (levocetirizine)) ~02/14/23 magnesium oxide 400 mg PO BID #60 tabs 01/25/23 02/15/23 1 Day Ago Rx ~02/14/23 omeprazole 20 mg capsule,delayed 20 mg PO DAILY #30 caps 01/25/23 02/15/23 1 Day Ago Rx release ~02/14/23 propranolol 10 mg tablet 10 mg PO BID #60 tabs 01/25/23 02/15/23 1 Day Ago Rx ~02/14/23 intraoperative neuromonitoring #1 ea 02/07/23 02/09/23 Unknown Rx ipratropium 20 mcg-albuterol 100 1 puff inhalation Q6H PRN 02/07/23 02/15/23 1 Day Ago Rx mcg/actuation mist for inhalation shortness of breath or wheezing #4 ~02/14/23 (Combivent Respimat) grams Allergies Allergy/AdvReac Type Severity Reaction Status Date / Time Corticosteroids Allergy ADR-Agitate Verified 02/15/23 09:50 (Glucocorticoids) d [facility] Anesthesia Medical History Anemia Anxiety CKD (chronic kidney disease) Dyslipidemia Environmental and seasonal allergies GERD (gastroesophageal reflux disease) Insomnia, unspecified Personal history of nicotine dependence Pulmonary emphysema Sciatica of left side Vitamin D deficiency Surgical History History of discectomy History of spinal fusion Family History Father Hypertension Myocardial infarction Coronary stent patent Mother Diabetes Other Adult hypothyroidism Social History Smoking and tobacco status: current every day smoker cigarettes Years cigarettes smoked: 35 [ Other cigarette details: 1 or 2 cigs weekly] Quit status (tobacco): considering quitting Smoking risk assessment/counseling performed?: Yes Alcohol intake: never Desire information about alcohol rehabilitation?: No Counseling given: No Desire information about substance/drug rehabilitation?: No Counseling given: No Adopted: No Caregiver/support person: No Lives independently: Yes Household members: spouse Housing: House Marital status: service: No Current occupational status: disabled Pets and animals: Yes Current gender identity: Male Data Anesthesia Cardiac Studies: Echocardiogram Ultrasound 02/13/20
[2023-02-16] VITALS (13 sets, daily range): BP systolic 107–187; BP diastolic 66–97; PULSE 80–85; RESP 16–18; TEMP 36.1–36.2; O2SAT 95–99
[2023-02-16] MEDS: sodium chloride 0.9% 1,000 ML 30 ML IV (06:24)
--- NOTE | 2023-02-16 06:43 | W.PM.OPSUD ---
Surgery/Procedure H&P Update DATE OF PROCEDURE: February 16, 2023 DATE H&P PERFORMED: 01/26/23 H&P UPDATE INFORMATION: I have reviewed H&P completed within last 30 days, I have examined patient prior to procedure and No changes to prior documentation PREOP DIAGNOSIS: Cervical spondylosis with radiculopathy PLANNED PROCEDURE: Operation Date: 02/16/23 07:00 Proposed Procedures p Anterior Cervical Discectomy & Fusion ACDF w/ Anterior Interbody Fusion w/ Cage w/ Instrumentation w/ Allograft: [id number],M47.22(Not Applicable) - Perry March, DO
[2023-02-16] MEDS: ceFAZolin 2,000 MG in sodium chloride 0.9% (plus) 50 ML 100 MG IV (06:57)
[2023-02-16] MEDS: lidocaine-epi 1% 20 mL INJ INJECTION (07:40)
--- NOTE | 2023-02-16 09:10 | XR_ITS ---
WS: [email or web address] Exam: XR cervical spine 1V [id number] Date/Time of Exam: 02/16/2023 9:11 AM Reason For Exam: or pics Intraoperative AP and lateral C-arm images of the C-spine are submitted for evaluation. Anterior fusion with screw fixation noted at the C2-3 level with intervening disc spacer. There is al so recent anterior fusion with screw fixation at C6-7 with disc spacer. Alignment appears satisfacto ry. Pre-existing anterior plate and screw fixation at C4-5 with bony fusion of the C-spine from C4 to C6. An endotracheal tube is partially visualized. No other significant finding on this limited serie s.
--- NOTE | 2023-02-16 09:30 | PM.OP ---
Operative Report Date of procedure: February 16, 2023 Pre-op diagnosis: Preop Diagnosis Cervical spondylosis with radiculopathy Post-op diagnosis: same Post-op diagnosis: 1. Anterior diskectomy C3/4 2. Anterior discectomy C6/7 3. Insertion of cage C3/4 4. Insertion of Cage C6/7 5. Instrumentation C3-4 6. Instrumentation from C6-7 7. Use of allograft Surgeon: Perry March Intercell Connector Placer: Omer Ansari Intercell Connector Placer: The certified surgical first assistant, Omer Ansari, GISELA was needed for his expertise under the microscope. He was important and necessary throughout the procedure to complete in a safe and timely manner. He assisted with patient positioning prepping and draping tissue retraction suctioning of the operative field protection of the dural sac and tissue closure Estimated blood loss (mL): 20 Procedure: 1. Anterior diskectomy C3/4 2. Anterior discectomy C6/7 3. Insertion of cage C3/4 4. Insertion of Cage C6/7 5. Instrumentation C3-4 6. Instrumentation from C6-7 7. Use of allograft The patient was taken to the operating room, where he underwent general endotracheal anesthesia without complications. He was then positioned supine on the operating table, and all areas of impingement were well padded. The arms were carefully padded and tucked at his sides. A roll was placed between the shoulder blades.. An x-ray was done to determine the appropriate level for the skin incision. The entire neck was then sterilely prepped and draped in the usual fashion. Neuromonitoring was attached prior to prepping. A transverse skin incision was made and carried down to the platysma muscle. This was then split in line with its fibers. Blunt dissection was carried down medial to the carotid sheath and lateral to the trachea and esophagus until the anterior cervical spine was visualized. A needle was placed into a disc and an x-ray was done to determine its location. The longus colli muscles were then elevated bilaterally with the electrocautery unit. Self-retaining retractors were placed deep to the longus colli muscle. Attention was brought to the C3/4 level that was confirmed by locating the previous plate that was placed. A radical anterior discectomies were performed at C3/4. This included complete removal of the anterior annulus, nucleus, and posterior annulus. The posterior longitudinal ligament was removed as were the posterior osteophytes. Foraminotomies were then accomplished bilaterally. This was done using a high speed louis, kerrison rongeurs and curretes Once all of this was accomplished, the curved currette was used to check for any residual compression. The central canal was wide open as were the foramen. A high-speed bur was used to remove the cartilaginous endplates above and below the interspace. Bleeding cancellous bone was exposed. The disc space were measured and appropriate size cage were placed sterilely onto the field. Allograft graft was packed into the cages. The cage was then placed and there was good juxtaposition against the bleeding decorticated surfaces and good distraction of each interspace. Two screws were then placed into each of the vertebral bodies at One at C3 and one at C4. There was excellent purchase. Attention was brought to the next interspace. Attention was brought to the C6/7 level that was confirmed on x-ray. A caspar pin was placed into the C6 vertebrae and the C7 vertebrae. The disk space was then distracted. The microscope was then brought in. A radical anterior discectomies were performed at C6/7. This included complete removal of the anterior annulus, nucleus, and posterior annulus. The posterior longitudinal ligament was removed as were the posterior osteophytes. Foraminotomies were then accomplished bilaterally. This was done using a high speed louis, kerrison rongeurs and curretes Once all of this was accomplished, the curved currette was used to check for any residual compression. The central canal was wide open as were the foramen. A high-speed bur was used to remove the cartilaginous endplates above and below the interspace. Bleeding cancellous bone was exposed. The disc space were measured and appropriate size cage were placed sterilely onto the field. Allograft graft was packed into the cages. The cage was then placed and there was good juxtaposition against the bleeding decorticated surfaces and good distraction of each interspace. Attention was brought to the next interspace. The [place] pins were removed. Bone wax was used to prevent any bleeding from occurring at the pin sites. Two screws were then placed into each of the vertebral bodies at One at C6 and one at C7. There was excellent purchase. A final x-ray was done confirming good position of the hardware and Cages. The locking screws were then applied, also with excellent purchase. Following a final copious irrigation, there was good hemostasis and no dural leaks. The carotid pulse was strong. The wounds were then closed in layers using 2-0 Vicryl suture for the platysma muscle, 2-0 Vicryl suture for the subcutaneous tissue, and 4-0 monocryl suture in a subcuticular skin closure. Glue was placed followed by application of a sterile dressing. The drain was hooked to bulb suction. A soft collar was applied. The patient was then carefully returned to the supine position on his hospital bed where he was reversed and extubated and taken to the recovery room having tolerated the procedure well.
--- NOTE | 2023-02-16 09:31 | P.ANESUD_ITS ---
Pre-Anesthetic Update Pre-Anesthetic Assessment: Date of Surgery/Procedure: 02/16/23 Preop Leesa gnosis: Cervical spondylosis with radiculopathy Proposed Procedure: Operation Date: 02/16/23 07:00 Proposed Procedures p Anterior Cervical Discectomy & Fusion ACDF w/ Anterior Interbody Fusion w/ Cage w/ Instrumentation w/ Allograft: [id number],M47.22(Not Applicable) - Perry March, DO Any changes to Pre-Anesthetic Assessment?: No Last Intake: Intake Last Liquid Date 02/15/23 Last Liquid Time 16:00 Last Solid Date 02/15/23 Last Solid Time 16:00 Vitals: Temperature 97.1 F L 02/16/23 06:03 Temperature Source Temporal Artery S can 02/16/23 06:03 Pulse Rate 80 02/16/23 06:03 Respiratory Rate 18 02/16/23 06:03 Blood Pressure 165/85 02/16/23 06:03 Blood Pressure Christin n 111 02/16/23 06:03 Pulse Oximetry 95 02/16/23 06:03 Oxygen Delivery Me thod 02/16/23 06:04 Oxygen Flow Rate 3 02/16/23 06:04 Exam: Pre-Anes Outpt Exam: alert, oriented x 3 and regular rate & rhythm Cardiac Studies: Echocardiogram Ultrasound 02/13/20
[2023-02-16] MEDS: HYDROcodone-acetaminophen 5-325 mg Tablet 1 TAB PO (10:55)
--- NOTE | 2023-02-16 16:43 | ANE.PACU2 ---
Inpatient post-anesthesia follow up: Airway intact: Yes Vital signs: Temperature 97.2 F Pulse Rate 81 Respiratory Rate 18 Blood Pressure 187/94 Pulse Oximetry 98 Oxygen Delivery Me thod Nasal Cannula Oxygen Flow Rate 2 Fraction of Inspir ed Oxygen Hydration adequate: Yes Nausea and vomiting: No Pain level: 2 Mental status: Baseline
== END 2023-02-16 11:35 | disposition home or self-care (01) ==
LOC: OR 09:28 → MEDSURG 09:58
PROVIDERS: PCP Nurse Practitioner; Visit Provider Orthopaedic Surgery
PROC: 0RB30ZZ Excision of Cervical Vertebral Disc, Open Approach (ICD-10-PCS; CPT 22551; principal; 2023-02-16 07:00)
DX: M47.812 Spondylosis without myelopathy or radiculopathy, cervical region (principal); J44.9 Chronic obstructive pulmonary disease, unspecified; Z99.81 Dependence on supplemental oxygen; I25.10 Atherosclerotic heart disease of native coronary artery without angina pectoris; I25.2 Old myocardial infarction; K21.9 Gastro-esophageal reflux disease without esophagitis; E78.5 Hyperlipidemia, unspecified; G89.29 Other chronic pain; Z79.891 Long term (current) use of opiate analgesic; F41.9 Anxiety disorder, unspecified; N18.9 Chronic kidney disease, unspecified; F17.210 Nicotine dependence, cigarettes, uncomplicated
CPT/HCPCS: 20930; 20936; 22551; 22552; 22845; 22853 ×2; 51702; 72020; 76000; C1713; C9359; J0131; J0330; J0690; J1170; J1200; J2250; J2370; J2405; J2704; J3010; J3490; J7030; L0172

== ENCOUNTER → 2023-03-01 08:45 | Outpatient (BNVA) | payer MEDICARE, MEDICAID, SELFPAY | PROVIDERS: PCP Nurse Practitioner; Visit Provider Physician Assistant | DX: Z98.1 Arthrodesis status (principal) | CPT/HCPCS: 72040; 99024 ==

== ENCOUNTER → 2023-03-29 09:33 | Outpatient (BNVA) | payer MEDICARE, MEDICAID, SELFPAY | PROVIDERS: PCP Nurse Practitioner; Visit Provider Physician Assistant | DX: Z98.1 Arthrodesis status (principal) | CPT/HCPCS: 72040; 99024 ==

== ENCOUNTER → 2023-05-04 10:28 | Outpatient (BNVA) | payer MEDICARE, MEDICAID, SELFPAY | PROVIDERS: PCP Nurse Practitioner; Visit Provider Nurse Practitioner Family | DX: M25.561 Pain in right knee (principal); M25.562 Pain in left knee | CPT/HCPCS: 73562 ==

== ENCOUNTER → 2023-05-12 07:56 | Outpatient (BNVA) | payer MEDICARE, MEDICAID, SELFPAY | PROVIDERS: PCP Nurse Practitioner; Visit Provider Physician Assistant | DX: Z98.1 Arthrodesis status (principal); M47.812 Spondylosis without myelopathy or radiculopathy, cervical region | CPT/HCPCS: 72040; 99213 ==

== ENCOUNTER → 2023-06-01 15:44 | Outpatient (BNVA) | payer MEDICARE, MEDICAID, SELFPAY | PROVIDERS: PCP Nurse Practitioner; Visit Provider Specialist | DX: M25.561 Pain in right knee (principal); M25.562 Pain in left knee; G89.29 Other chronic pain | CPT/HCPCS: 73560; 73565; 99204 ==

== ENCOUNTER → 2023-07-05 15:05 | Outpatient (BNVA) | payer MEDICARE, MEDICAID, SELFPAY | PROVIDERS: PCP Nurse Practitioner; Visit Provider Physician Assistant | DX: M47.812 Spondylosis without myelopathy or radiculopathy, cervical region (principal); M48.062 Spinal stenosis, lumbar region with neurogenic claudication; Z98.1 Arthrodesis status | CPT/HCPCS: 72040; 99213 ==

== ENCOUNTER → 2023-07-15 09:50 | Outpatient (BNVA) | payer MEDICARE, MEDICAID, SELFPAY | PROVIDERS: PCP Nurse Practitioner; Visit Provider Nurse Practitioner | DX: E55.9 Vitamin D deficiency, unspecified (principal); E78.5 Hyperlipidemia, unspecified | CPT/HCPCS: 80053; 80061; 82306 ==

== ENCOUNTER → 2023-07-22 10:46 | Outpatient (BNVA) | payer MEDICARE, MEDICAID, SELFPAY | PROVIDERS: PCP Nurse Practitioner; Visit Provider Nurse Practitioner | DX: N18.9 Chronic kidney disease, unspecified (principal) | CPT/HCPCS: 81000 ==

== ENCOUNTER → 2023-07-26 07:52 | Outpatient (BNVA) | payer MEDICARE, MEDICAID, SELFPAY | PROVIDERS: PCP Nurse Practitioner; Visit Provider Physician Assistant | DX: M48.062 Spinal stenosis, lumbar region with neurogenic claudication (principal); Z98.1 Arthrodesis status | CPT/HCPCS: 72040; 99213 ==

== ENCOUNTER 2023-08-08 06:25 | Outpatient (CLI) | payer MEDICARE, MEDICAID, SELFPAY ==
--- NOTE | 2023-08-08 07:00 | US_ITS ---
WS: [email or web address] RENAL ULTRASOUND HISTORY: R39.11 - Hesitancy of micturition COMPARISON: 06/20/2013 TECHNIQUE: 2-D and color Doppler imaging of the kidney submitted. Right kidney: 10.4 cm x 4.6 cm x 3.4 cm. Cortex: 1.3 cm Normal echogenicity with no hydronephrosis or mass. Left kidney: 9.2 cm x 3.3 cm x 4.2 cm. Cortex: 1.0 cm Normal size kidney. Previously described complex cyst or mass from the mid kidney is not identified b y this evaluation. No mass or calcifications. Aorta: Normal. Urinary Bladder: Normal distention. IMPRESSION: Normal renal ultrasound.
== END 2023-08-08 06:26 | disposition home or self-care (01) ==
PROVIDERS: PCP Nurse Practitioner; Visit Provider Nurse Practitioner
DX: R39.11 Hesitancy of micturition (principal)
CPT/HCPCS: 72040; 76770; 99213

== ENCOUNTER → 2024-01-09 14:29 | Outpatient (BNVA) | payer OTHER, MEDICAID, SELFPAY | PROVIDERS: PCP Nurse Practitioner; Visit Provider Nurse Practitioner | DX: F41.9 Anxiety disorder, unspecified (principal); E78.5 Hyperlipidemia, unspecified; E55.9 Vitamin D deficiency, unspecified | CPT/HCPCS: 80053; 80061; 82306; 83735 ==

== ENCOUNTER → 2024-05-08 15:38 | Outpatient (BNVA) | payer OTHER, MEDICAID, SELFPAY | PROVIDERS: PCP Nurse Practitioner; Visit Provider Orthopaedic Surgery | DX: M48.062 Spinal stenosis, lumbar region with neurogenic claudication (principal); M54.9 Dorsalgia, unspecified | CPT/HCPCS: 72110 ==

== ENCOUNTER → 2024-06-26 13:43 | Outpatient (BNVA) | payer OTHER, MEDICAID, SELFPAY | PROVIDERS: PCP Nurse Practitioner; Visit Provider Nurse Practitioner | DX: E55.9 Vitamin D deficiency, unspecified (principal); E78.5 Hyperlipidemia, unspecified | CPT/HCPCS: 80053; 80061; 82306; 82607; 84443 ==

== ENCOUNTER → 2025-01-31 10:17 | Outpatient (BNVA) | payer MEDICARE, MEDICAID, SELFPAY | PROVIDERS: PCP Nurse Practitioner; Visit Provider Nurse Practitioner | DX: N18.9 Chronic kidney disease, unspecified (principal); Z12.5 Encounter for screening for malignant neoplasm of prostate | CPT/HCPCS: 80053; 80061; G0103 ==

== ENCOUNTER → 2025-03-21 09:58 | Outpatient (BNVA) | payer MEDICARE, MEDICAID, SELFPAY | PROVIDERS: PCP Nurse Practitioner; Visit Provider Nurse Practitioner | DX: R41.3 Other amnesia (principal) | CPT/HCPCS: 82607; 84425; 84443 ==

== ENCOUNTER 2025-03-27 09:31 | Outpatient (CLI) | payer MEDICARE, MEDICAID, SELFPAY ==
--- NOTE | 2025-03-27 10:15 | MR_ITS ---
WS: [email or web address] MRI BRAIN WITHOUT CONTRAST HISTORY: R41.3 - Other amnesia COMPARISON: 08/15/2019 TECHNIQUE: Diffusion imaging, multiplanar T1, T2 and FLAIR imaging obtained. No evidence for acute infarct or hemorrhage. De La Paz-white matter differentiation is normal. Mild cerebral volume loss and cerebellar atrophy. Minimal small vessel disease. No prior infarct. Minimal bilateral hippocampal atrophy, RIGHT greater than LEFT. Similar to the prior study. No remote or acute infarcts are volume loss. Ventricles and extra-axial spaces are normal. No inferior displacement of cerebellar tonsils. The sella turcica and pituitary gland are unremarkable. Dural venous sinuses and elim ira of Frank demonstrate no abnormality on this unenhanced studies. Paranasal sinuses: Clear. Mastoid air cells: Normal. Calvarium and scalp: Intact. MR/MR head wo con* [id number] IMPRESSION: 1. No acute infarct or large territory infarct. 2. Minimal small vessel disease with mild cerebral and cerebellar atrophy. 3. Mild hippocampal atrophy. 4. No hemorrhage.
== END 2025-03-27 09:32 | disposition home or self-care (01) ==
LOC: RAD 09:33
PROVIDERS: PCP Nurse Practitioner; Visit Provider Nurse Practitioner
DX: R41.3 Other amnesia (principal); G31.89 Other specified degenerative diseases of nervous system; R93.0 Abnormal findings on diagnostic imaging of skull and head, not elsewhere classified
CPT/HCPCS: 70551

== ENCOUNTER → 2025-05-08 10:43 | Outpatient (BNVA) | payer MEDICARE, MEDICAID, SELFPAY | PROVIDERS: PCP Nurse Practitioner; Visit Provider Nurse Practitioner | DX: E55.9 Vitamin D deficiency, unspecified (principal) | CPT/HCPCS: 80053; 82306 ==

== ENCOUNTER → 2025-07-10 14:32 | Outpatient (BNVA) | payer MEDICARE, MEDICAID, SELFPAY | PROVIDERS: PCP Nurse Practitioner; Visit Provider Nurse Practitioner | DX: E78.5 Hyperlipidemia, unspecified (principal); N18.9 Chronic kidney disease, unspecified | CPT/HCPCS: 80053; 80061 ==